=== PATIENT | female | born 1945 | race Caucasian/White ===

== ENCOUNTER 2017-11-07 10:28 | Emergency (ER) | payer MEDICARE ==
[2017-11-07 12:05] LABS: #Eosinphils 0.1 thou/uL (0.0-0.7); #Lymphocytes 1.5 thou/uL (1.20-3.40); #Monocytes 0.6 thou/uL (0.11-0.59); %Basophils 0.5 % (0.0-1.0); %Lymphocytes 24.6 % (21.0-51.0); %Monocytes 9.6 % (0.0-10.0); %Neutrophils 64.4 % (42.0-75.0); Hemoglobin 14.3 g/dL (12.0-16.0); Mean Corpuscular Hemoglobin 31.3 pg (27.0-31.0); Mean Corpuscular Volume 91.9 fl (81.0-99.0); Mean Platelet Volume 6.8 fL (7.4-10.4); Platelet Count 240 thou/uL (130-400); Red Blood Cell (RBC) Count 4.59 mill/uL (4.20-5.40); White Blood Cell (WBC) Count 6.1 thou/uL (4.8-10.8)
[2017-11-07 12:31] LABS: ALT (SGPT) 29 U/L (8-55); AST (SGOT) 35 U/L (5-34); Albumin 4.3 g/dL (3.4-4.8); Alkaline Phosphatase 100 U/L (40-150); Anion Gap 15 mmol/L (10-20); BUN (Urea Nitrogen) 22 mg/dL (9.8-20.1); Bilirubin, Total 0.7 mg/dL (0.2-1.2); Calc. Creatinine Clearance 0 mL/min (70-130); Calcium 10.1 mg/dL (7.8-10.44); Carbon Dioxide 24 mmol/L (23-31); Chloride 105 mmol/L (98-107); Estimated GFR-MDRD 43; Globulin 3.2 g/dL (2.4-3.5); Glucose 136 mg/dL (83-110); Lipase 35 U/L (8-78); Potassium 3.7 mmol/L (3.5-5.1); Protein, Total 7.5 g/dL (6.0-8.3); Sodium 140 mmol/L (136-145)
[2017-11-07 15:21] LABS: Bilirubin Negative (Negative); Blood, Urine Negative (Negative); Clarity CLEAR (Clear); Glucose, Urine (Dipstick) Negative (Negative); Leukocyte Negative (Negative); Nitrite Negative (Negative); Protein, Urine (Dipstick) Negative (Neg-Trace); Specific Gravity, Urine 1.011 (1.002-1.036); pH, Urine 6.5 (5.0-9.0)
== END 2017-11-07 15:45 | disposition home or self-care (01) ==
LOC: ERS 10:28
DX: K59.00 Constipation, unspecified (principal); I12.9 Hypertensive chronic kidney disease with stage 1 through stage 4 chronic kidney disease, or unspecified chronic kidney disease; E11.22 Type 2 diabetes mellitus with diabetic chronic kidney disease; N18.3 Chronic kidney disease, stage 3 (moderate); Z79.82 Long term (current) use of aspirin; Z79.899 Other long term (current) drug therapy
CPT/HCPCS: 36415; 80053; 81003; 83690; 85025; 99283

== ENCOUNTER 2017-11-13 09:15 | Outpatient (CLI) | payer MEDICARE | END 2017-11-13 09:16 | disposition home or self-care (01) | LOC: BICRAD 09:15 | PROVIDERS: ATTEND Family Medicine | DX: R10.84 Generalized abdominal pain (principal); K59.00 Constipation, unspecified | CPT/HCPCS: 74019 ==

== ENCOUNTER 2018-08-20 14:07 | Outpatient (CLI) | payer MEDICARE | END 2018-08-20 14:08 | disposition home or self-care (01) | LOC: BICMAMMO 14:07 | PROVIDERS: ATTEND Family Medicine | DX: Z12.31 Encounter for screening mammogram for malignant neoplasm of breast (principal); Z85.3 Personal history of malignant neoplasm of breast; Z80.3 Family history of malignant neoplasm of breast | CPT/HCPCS: 77063; 77067 ==

== ENCOUNTER 2020-07-27 10:26 | Outpatient (CLI) | payer MEDICARE ==
--- NOTE | 2020-07-27 11:37 | MRI ---
MRI lumbar spine noncontrast: HISTORY: Intervertebral disc disorder with radiculopathy. COMPARISON: 03/06/2017 FINDINGS: Heterogeneous T1 marrow signal intensity throughout the lumbar vertebra suggesting senescent change. There are type I Modic changes at T12-L1, L1-L2, L2-L3, and type I Modic changes at L3-L4. Appropriate signal intensity of the visualized paraspinal muscles and solid organs Conus medullaris terminates at the mid L1 level. Stable dextroscoliosis of the lumbar spine. Spondylolisthesis: L2-L3: 2.8 mm of retrolisthesis. T12-L1:Stable disc desiccation. No significant central canal stenosis or significant neural foraminal narrowing. There is a Schmorl's node along the inferior endplate of T12. L1-L2:Stable disc desiccation with moderate loss of disc space height. Broad-based disc bulge results in mild central canal stenosis. Moderate bilateral neural foraminal narrowing. Stable chronic Schmorl's node along the inferior endplate of L1. L2-L3:Disc desiccation with severe loss of disc space height. Broad-based disc bulge abuts the thecal sac. Mild central canal stenosis. Moderate right and moderate to severe left neural foraminal narrowing. L3-L4:Disc desiccation with moderate loss of disc space height. Broad-based disc bulge, ligamentum fl avum thickening and facet hypertrophy result in mild to moderate central canal stenosis. Moderate bilateral neural foraminal narrowing. L4-L5:Disc desiccation with mild loss of disc space height. Broad-based disc bulge, ligamentum flavum thickening and facet hypertrophy result in severe central canal stenosis. Moderate to severe right and moderate left neural foraminal narrowing. L5-S1:Adequate disc hydration. No significant central canal stenosis. Neural foramina are patent. IMPRESSION: Multilevel degenerative changes of the lumbar spine as detailed above. Transcribed Date/Time: 07/27/2020 12:03 PM
== END 2020-07-27 10:27 | disposition home or self-care (01) ==
LOC: BICMRI 10:26
PROVIDERS: ATTEND Specialist
DX: M51.16 Intervertebral disc disorders with radiculopathy, lumbar region (principal); M47.26 Other spondylosis with radiculopathy, lumbar region
CPT/HCPCS: 72148

== ENCOUNTER 2021-05-10 10:26 | Outpatient (CLI) | payer MEDICARE | END 2021-05-10 10:27 | disposition home or self-care (01) | LOC: BICMAMMO 10:26 | PROVIDERS: ATTEND Family Medicine | DX: Z12.31 Encounter for screening mammogram for malignant neoplasm of breast (principal); Z80.3 Family history of malignant neoplasm of breast; Z85.3 Personal history of malignant neoplasm of breast; Z90.12 Acquired absence of left breast and nipple; Z98.82 Breast implant status | CPT/HCPCS: 77063; 77067 ==

== ENCOUNTER 2021-07-10 16:10 | Inpatient (IN) | payer MEDICARE ==
[2021-07-10 17:34] LABS: #Eosinphils 0.2 thou/uL (0.0-0.7); #Lymphocytes 1.4 thou/uL (1.20-3.40); #Monocytes 0.5 thou/uL (0.11-0.59); #Neutrophils 4.4 thou/uL (1.40-6.50); %Basophils 0.2 % (0.0-1.0); %Eosinophils 2.4 % (0.0-10.0); %Lymphocytes 21.1 % (21.0-51.0); %Monocytes 7.7 % (0.0-10.0); %Neutrophils 68.7 % (42.0-75.0); Hemoglobin 14.4 g/dL (12.0-16.0); Mean Corpuscular HGB CONC 33.8 g/dL (32.0-36.0); Mean Corpuscular Hemoglobin 31.2 pg (27.0-31.0); Mean Corpuscular Volume 92.4 fL (78.0-98.0); Mean Platelet Volume 6.8 fL (7.4-10.4); Platelet Count 211 thou/uL (130-400); RBC Distribution Width 11.1 % (11.5-14.5); Red Blood Cell (RBC) Count 4.62 mill/uL (4.20-5.40); White Blood Cell (WBC) Count 6.4 thou/uL (4.8-10.8)
[2021-07-10] MEDS ORDERED: Ketorolac Tromethamine 30 MG/ML VIAL ONE (17:44)
[2021-07-10] MEDS ORDERED: Dextrose 50% Abboject 50 ML SYRINGE SLOW IVP PRN (17:45)
[2021-07-10] MEDS ORDERED: Promethazine HCl 25 MG/ML VIAL IM PRN (17:45)
[2021-07-10] MEDS ORDERED: Dextrose 5% in Water 1,000 ML IV PRN (17:45)
[2021-07-10] MEDS ORDERED: Morphine 4 MG/ML VIAL SLOW IVP PRN (17:59)
[2021-07-10 18:03] LABS: ALT (SGPT) 40 U/L (8-55); AST (SGOT) 53 U/L (5-34); Alkaline Phosphatase 131 U/L (40-110); Anion Gap 11 mmol/L (10-20); BUN (Urea Nitrogen) 16 mg/dL (9.8-20.1); Bilirubin, Total 0.7 mg/dL (0.2-1.2); Calc. Creatinine Clearance 0 mL/min (70-130); Calcium 9.5 mg/dL (7.8-10.44); Carbon Dioxide 28 mmol/L (23-31); Chloride 105 mmol/L (98-107); Globulin 2.8 g/dL (2.4-3.5); Glucose 135 mg/dL (83-110); Potassium 3.7 mmol/L (3.5-5.1); Protein, Total 6.8 g/dL (5.8-8.1); Sodium 140 mmol/L (136-145)
[2021-07-10] MEDS: Acetaminophen 500 MG TAB PO SCH ×2 (18:40→22:51)
[2021-07-10] MEDS: Sodium Chloride 0.9% 1,000 ML IV SCH (18:41)
[2021-07-10] MEDS: Senokot S 8.6-50 MG TAB PO SCH (20:54)
[2021-07-10] MEDS ORDERED: Famotidine/PF 20 mg/2ml Vial SLOW IVP SCH (21:00)
[2021-07-10 22:19] VITALS: BMI 25.4
[2021-07-10] MEDS ORDERED: diphenhydrAMINE 25 MG CAP PO PRN (22:42)
[2021-07-10 23:19] LABS: SARS-CoV-2 NAA Rapid Test Not Detected (NotDetected)
[2021-07-11] MEDS: Ondansetron PF 4 MG/2 ML Vial IVP PRN ×2 (00:11→16:53)
[2021-07-11] MEDS: Acetaminophen 500 MG TAB PO SCH ×4 (05:06→19:59)
[2021-07-11 06:13] LABS: #Eosinphils 0.1 thou/uL (0.0-0.7); #Lymphocytes 1.3 thou/uL (1.20-3.40); #Monocytes 0.5 thou/uL (0.11-0.59); #Neutrophils 2.1 thou/uL (1.40-6.50); %Eosinophils 1.3 % (0.0-10.0); %Lymphocytes 33.2 % (21.0-51.0); %Monocytes 11.8 % (0.0-10.0); %Neutrophils 53.7 % (42.0-75.0); Hemoglobin 13.2 g/dL (12.0-16.0); Mean Corpuscular HGB CONC 33.9 g/dL (32.0-36.0); Mean Corpuscular Hemoglobin 31.1 pg (27.0-31.0); Mean Corpuscular Volume 91.9 fL (78.0-98.0); Mean Platelet Volume 6.8 fL (7.4-10.4); Platelet Count 185 thou/uL (130-400); RBC Distribution Width 11.1 % (11.5-14.5); Red Blood Cell (RBC) Count 4.25 mill/uL (4.20-5.40)
[2021-07-11 06:23] LABS: INR-International Normal Ratio 1.1; PTT 29.9 sec (22.9-36.1); Prothrombin Time 14.2 sec (12.0-14.7)
[2021-07-11 06:26] LABS: Anion Gap 10 mmol/L (10-20); BUN (Urea Nitrogen) 12 mg/dL (9.8-20.1); Calc. Creatinine Clearance 64 mL/min (70-130); Calcium 8.9 mg/dL (7.8-10.44); Carbon Dioxide 24 mmol/L (23-31); Chloride 109 mmol/L (98-107); Glucose 117 mg/dL (83-110); Phosphorus 3.4 mg/dL (2.3-4.7); Potassium 3.5 mmol/L (3.5-5.1); Sodium 139 mmol/L (136-145)
[2021-07-11] MEDS ORDERED: Potassium Phosphate 30 MMOL in Sodium Chloride 0.9% 250 ML 250 ML IVPB SCH (08:00)
[2021-07-11] MEDS ORDERED: Polyethylene Glycol 3350 17 GM Packet PO SCH (09:00)
[2021-07-11] MEDS: Senokot S 8.6-50 MG TAB PO SCH ×2 (09:03→19:59)
[2021-07-11] MEDS ORDERED: ceFAZolin 2 GM/Dextrose 50 ML 2 GM in Premix Bag 1 BAG IVPB SCH (09:30)
[2021-07-11] MEDS ORDERED: Morphine 4 MG/ML VIAL SLOW IVP PRN (10:41)
[2021-07-11] MEDS ORDERED: ceFAZolin 2 GM/DEX 5% 100 ML BAG ONE (12:08)
[2021-07-11] MEDS ORDERED: Lidocaine 2% Jelly 5 ML TUBE ONE (12:33)
[2021-07-11] MEDS ORDERED: Fentanyl 100 MCG/2 ML VIAL ONE ×5 (12:33→15:40)
[2021-07-11] MEDS ORDERED: Rocuronium Bromide 10 MG/ML (10ML VIAL) ONE (13:08)
[2021-07-11] MEDS ORDERED: PROPOFOL 200 MG/20 ML VIAL ONE (13:08)
[2021-07-11] MEDS ORDERED: Glycopyrrolate 0.2 MG/ML 5 ML SYRINGE ONE (13:08)
[2021-07-11] MEDS ORDERED: Dexamethasone 20 MG/5 ML VIAL ONE (13:08)
[2021-07-11] MEDS ORDERED: Lidocaine 1% PF 5 ML VIAL ONE (13:08)
[2021-07-11] MEDS ORDERED: Ondansetron PF 4 MG/2 ML Vial ONE (13:08)
[2021-07-11] MEDS ORDERED: ePHEDrine 50 MG/ML VIAL ONE (13:08)
[2021-07-11] MEDS ORDERED: Promethazine HCl 25 MG/ML VIAL IM/IV PRN (16:00)
[2021-07-11] MEDS ORDERED: Non-Formulary Medication 1 EACH PO PRN (16:00)
[2021-07-11] MEDS ORDERED: Ondansetron HCl/PF 4 MG/2 ML Vial IVP PRN (16:00)
[2021-07-11] MEDS ORDERED: Acetaminophen 500 MG TAB PO SCH (16:36)
[2021-07-11] MEDS ORDERED: Acetaminophen/Codeine 30-300mg Tablet PO SCH (16:45)
[2021-07-11] MEDS: Sodium Chloride 0.9% 1,000 ML IV SCH (18:22)
[2021-07-11] MEDS: traMADol HCl 50 MG TAB PO SCH (19:10)
[2021-07-11] MEDS: ceFAZolin Sodium/D5W 2 GM in Premix Bag 1 BAG IVPB SCH (19:57)
[2021-07-11] MEDS: Pregabalin 25 MG CAP PO SCH (19:58)
[2021-07-11] MEDS: Melatonin 3 MG TAB PO SCH (19:58)
[2021-07-11] MEDS ORDERED: Famotidine/PF 20 mg/2ml Vial SLOW IVP SCH (21:00)
[2021-07-11] MEDS ORDERED: Gabapentin 300 MG CAP PO SCH (21:00)
[2021-07-12] MEDS: traMADol HCl 50 MG TAB PO SCH ×2 (04:19→17:42)
[2021-07-12] MEDS: Sodium Chloride 0.9% 1,000 ML IV SCH (04:19)
[2021-07-12] MEDS: ceFAZolin Sodium/D5W 2 GM in Premix Bag 1 BAG IVPB SCH ×2 (04:19→11:50)
[2021-07-12] MEDS: Acetaminophen 500 MG TAB PO SCH ×4 (04:21→23:37)
[2021-07-12] MEDS: HumaLOG 300 UNITS/3 ML VIAL SC PRN ×4 (05:46→21:08)
[2021-07-12 06:27] LABS: Anion Gap 12 mmol/L (10-20); BUN (Urea Nitrogen) 16 mg/dL (9.8-20.1); Calc. Creatinine Clearance 54 mL/min (70-130); Calcium 9.1 mg/dL (7.8-10.44); Carbon Dioxide 24 mmol/L (23-31); Chloride 106 mmol/L (98-107); Glucose 192 mg/dL (83-110); Magnesium 1.8 mg/dL (1.6-2.6); Phosphorus 4.1 mg/dL (2.3-4.7); Potassium 3.9 mmol/L (3.5-5.1); Sodium 138 mmol/L (136-145)
[2021-07-12] MEDS ORDERED: Lactated Ringer's 500 ML IV SCH (07:30)
[2021-07-12] MEDS ORDERED: Magnesium Citrate 300 ML BOT PO SCH (07:30)
[2021-07-12] MEDS ORDERED: Lactated Ringer's 1,000 ML IV SCH (07:30)
[2021-07-12] MEDS ORDERED: Magnesium Sulfate 3 GM in Sodium Chloride 0.9% 100 ML IV SCH (07:30)
[2021-07-12] MEDS: Polyethylene Glycol 3350 17 GM Packet PO SCH (08:32)
[2021-07-12] MEDS: Furosemide 20 MG TAB PO SCH (08:32)
[2021-07-12] MEDS: Pregabalin 25 MG CAP PO SCH ×2 (08:32→20:04)
[2021-07-12] MEDS: Amlodipine 10 MG TAB PO SCH (08:32)
[2021-07-12] MEDS: Senokot S 8.6-50 MG TAB PO SCH ×2 (08:33→20:04)
[2021-07-12] MEDS: Aspirin 81 mg Enteric Coated Tablet PO SCH ×2 (08:33→20:03)
[2021-07-12 15:28] LABS: Band 1 % (5-11); Hemoglobin 12.6 g/dL (12.0-16.0); Lymphocytes 15 % (21-51); MDiff Complete? YES; Mean Corpuscular HGB CONC 33.8 g/dL (32.0-36.0); Mean Corpuscular Hemoglobin 31.5 pg (27.0-31.0); Mean Corpuscular Volume 93.1 fL (78.0-98.0); Monocytes 12 % (0-10); Neutrophil 72 % (42-75); Platelet Count 173 thou/uL (130-400); Platelet Morphology Comment Appears Adequate; RBC Distribution Width 11.1 % (11.5-14.5); RBC Morphology Normal; Red Blood Cell (RBC) Count 3.99 mill/uL (4.20-5.40); White Blood Cell (WBC) Count 7.8 thou/uL (4.8-10.8)
[2021-07-12] MEDS: Melatonin 3 MG TAB PO SCH (20:03)
[2021-07-13] MEDS: Acetaminophen 500 MG TAB PO SCH ×2 (04:52→11:40)
[2021-07-13 05:11] LABS: #Lymphocytes 1.6 thou/uL (1.20-3.40); #Monocytes 1.3 thou/uL (0.11-0.59); #Neutrophils 6.2 thou/uL (1.40-6.50); %Basophils 0.1 % (0.0-1.0); %Eosinophils 0.4 % (0.0-10.0); %Lymphocytes 17.5 % (21.0-51.0); %Monocytes 14.5 % (0.0-10.0); %Neutrophils 67.5 % (42.0-75.0); Hemoglobin 11.4 g/dL (12.0-16.0); Mean Corpuscular HGB CONC 33.6 g/dL (32.0-36.0); Mean Corpuscular Hemoglobin 31.5 pg (27.0-31.0); Mean Corpuscular Volume 93.8 fL (78.0-98.0); Mean Platelet Volume 7.2 fL (7.4-10.4); Platelet Count 180 thou/uL (130-400); RBC Distribution Width 11.4 % (11.5-14.5); Red Blood Cell (RBC) Count 3.62 mill/uL (4.20-5.40); White Blood Cell (WBC) Count 9.2 thou/uL (4.8-10.8)
[2021-07-13] MEDS: traMADol HCl 50 MG TAB PO SCH (05:20)
[2021-07-13 05:49] LABS: Anion Gap 10 mmol/L (10-20); BUN (Urea Nitrogen) 20 mg/dL (9.8-20.1); Calc. Creatinine Clearance 48 mL/min (70-130); Calcium 8.9 mg/dL (7.8-10.44); Carbon Dioxide 30 mmol/L (23-31); Chloride 105 mmol/L (98-107); Glucose 167 mg/dL (83-110); Magnesium 2.2 mg/dL (1.6-2.6); Phosphorus 3.1 mg/dL (2.3-4.7); Potassium 3.6 mmol/L (3.5-5.1); Sodium 141 mmol/L (136-145)
[2021-07-13] MEDS: Amlodipine 10 MG TAB PO SCH (08:59)
[2021-07-13] MEDS: Pregabalin 25 MG CAP PO SCH (09:01)
[2021-07-13] MEDS: Aspirin 81 mg Enteric Coated Tablet PO SCH (09:01)
[2021-07-13] MEDS: Senokot S 8.6-50 MG TAB PO SCH (09:01)
[2021-07-13] MEDS: Polyethylene Glycol 3350 17 GM Packet PO SCH (09:01)
[2021-07-13] MEDS: Furosemide 20 MG TAB PO SCH (09:01)
[2021-07-13 11:39] VITALS: BP 119/77; TEMP 97.8
== END 2021-07-13 12:40 | disposition home or self-care (01) | DRG 482 ==
LOC: ERS 16:10 → SURG B 17:20
PROVIDERS: ADMIT Surgery; ATTEND Surgery
PROC: 0QS604Z Reposition Right Upper Femur with Internal Fixation Device, Open Approach (ICD-10-PCS; principal; 2021-07-11)
DX: S72.141A Displaced intertrochanteric fracture of right femur, initial encounter for closed fracture (principal); N18.30 Chronic kidney disease, stage 3 unspecified; E11.22 Type 2 diabetes mellitus with diabetic chronic kidney disease; I12.9 Hypertensive chronic kidney disease with stage 1 through stage 4 chronic kidney disease, or unspecified chronic kidney disease; W19.XXXA Unspecified fall, initial encounter; Z96.652 Presence of left artificial knee joint; E78.5 Hyperlipidemia, unspecified; Z20.822 Contact with and (suspected) exposure to COVID-19; E87.5 Hyperkalemia; E78.00 Pure hypercholesterolemia, unspecified; Z88.5 Allergy status to narcotic agent; Z90.710 Acquired absence of both cervix and uterus; Y92.008 Other place in unspecified non-institutional (private) residence as the place of occurrence of the external cause
CPT/HCPCS: 36415; 36416; 71045; 72170; 76000; 80048; 80053; 83735; 84100; 84484; 85025; 85610; 85730; 86850; 86900; 86901; 93005; 96374; C1713; C1769; G0390; J1100; J1815; J1885; J2270; J2405; J2704; J3010; J3475; J3490; J7050; J7120; S0028; U0002